=== PATIENT | female | born 1950 | race Caucasian/White ===

== ENCOUNTER 2021-08-11 13:26 | Inpatient (IN) | payer MEDICARE, OTHER ==
[~2021-08-11] VITALS: Ht 157.5 cm; Wt 89.6 kg
[~2021-08-11 13:26] MED LIST: CRUTCH3 USE; HYDACE5 PO; IBUP600 PO; NAPR500 PO; [UNRECOGNIZED DRUG - OTHER] PO
[2021-08-11 14:38] LABS: BASOPHILS ABSOLUTE AUTO 0.05 K/mm3 (0.00-0.23); BASOPHILS PERCENT AUTO 0 % (0-2); EOSINOPHILS PERCENT AUTO 0 % (0-6); Hematocrit 43.9 % (33.0-51.0); Hemoglobin 14.4 g/dL (11.5-16.0); IMMATURE GRAN PERCENT AUTO 2 % (0-1); LYMPHOCYTES ABSOLUTE AUTO 0.82 K/mm3 (0.84-5.20); LYMPHOCYTES PERCENT AUTO 4 % (21-46); MONOCYTES ABSOLUTE AUTO 1.39 K/mm3 (0.16-1.47); MONOCYTES PERCENT AUTO 6 % (4-13); Mean Corpuscular HGB 28.3 pg (26.0-34.0); Mean Corpuscular HGB Conc 32.8 g/dL (31.5-36.5); Mean Corpuscular Volume 86 fL (80-100); Mean Platelet Volume 10.5 fL (9.1-12.4); NEUTROPHILS ABSOLUTE AUTO 19.16 K/mm3 (1.96-9.15); NEUTROPHILS PERCENT AUTO 88 % (41-73); Platelet Count 255 K/mm3 (150-400); RDW Coefficient Variation 11.9 % (11.7-14.2); RDW Standard Deviation 38.3 fL (35.1-46.3); Red Blood Cell Count 5.08 M/mm3 (3.80-5.20); White Blood Cell Count 21.92 K/mm3 (4.00-11.30)
[2021-08-11 14:41] LABS: Base Excess Venous -4.5 mmol/L; Bicarbonate Venous 20.7 mmol/L (24.0-30.0); PO2 Venous 50.8 mmHg (38-42); pH Blood Venous 7.33 (7.34-7.37)
[2021-08-11 15:00] LABS: Glucose, Blood 601 mg/dL (70-99)
[2021-08-11 15:06] LABS: Troponin I <0.015 ng/mL (0.000-0.040)
[2021-08-11 15:07] LABS: Alanine Aminotransfer (ALT/SGP 16 U/L (12-78); Albumin, Blood 2.3 g/dL (3.4-5.0); Albumin/Globulin Ratio 0.4 (0.8-1.8); Alk Phos 104 U/L (50-136); Anion Gap 15 mmol/L (6-16); Aspartate Aminotrans (AST/SGOT 18 U/L (12-37); Bilirubin, Total 1.2 mg/dL (0.1-1.0); Blood Urea Nitrogen 39 mg/dL (8-24); Bun/Creatinine Ratio 34.8 (12.0-20.0); CO2, Blood 20 mmol/L (21-32); Calcium, Blood 8.9 mg/dL (8.5-10.1); Chloride, Blood 90 mmol/L (98-108); Creatinine, Blood 1.12 mg/dL (0.40-1.00); Globulin, Blood 5.5 g/dL (2.2-4.0); Glomerular Filtration Rate 48 (60-); Glucose, Blood 583 mg/dL (70-99); Potassium, Blood 4.4 mmol/L (3.5-5.5); Sodium, Blood 125 mmol/L (136-145); Total Protein, Blood 7.8 g/dL (6.4-8.2)
[2021-08-11 15:31] LABS: Magnesium, Blood 1.7 mg/dL (1.6-2.4)
[2021-08-11 15:40] LABS: Source, Urine Clean Catch
[2021-08-11 15:49] LABS: Appearance, Urine Cloudy (Clear); Bilirubin, Urine Neg (Neg); Blood, Urine 4+ (Neg); Color, Urine Yellow (P-Yellow); Glucose Qualitative, Urine 4+ (Neg); Ketones, Urine 3+ (Neg); Leukocyte Esterase, Urine 3+ (Neg); Nitrite, Urine Neg (Neg); Protein, Urine 2+ (Neg); Urobilinogen, Urine NORM (Normal)
[2021-08-11 16:30] LABS: White Blood Cells, Urine 50-100 /hpf (0-5)
[2021-08-11 16:31] LABS: Bacteria Many /hpf; Squamous Epithelial Cells Few /hpf (Few)
[2021-08-11 18:50] LABS: SARS-Cov-2 (COVID-19) PCR, MMC NEGATIVE (NEGATIVE)
[2021-08-11 20:41] LABS: Influenza A, PCR NEGATIVE (NEGATIVE); Influenza B, PCR NEGATIVE (NEGATIVE); Resp Syncytial Virus, PCR NEGATIVE (NEGATIVE)
--- NOTE | 2021-08-11 22:11 | NUR ---
PATIENT TO ROOM @2044 FROM ED. PATIENT IS ALERT AND ORIENTED X SELF ONLY. FOLLOWS COMMANDS BUT VERY FORGETFULL AND DOES NOT MAKE SENSE AT TIMES. 02 SATS 92-95% ON RA. LUNGS SOUNDS CLEAR IN UPPER LOBES AND DIM IN THE BASES. HR SR 110-130 WITH PVCs. PATIENT DENIES CP/PRESSURE. BP ELEVATED. BRIEF IN PLACE, PATIENT INCONTINENT. SKIN BREAKDOWN IN VAGINAL AREA NOTICED, LIKELY DUE TO MOISTURE/INCONTINENCE. UPON ARRIVAL FROM ED, NS AND INSULIN INF IN INFILTRATED IV, IV PULLED AND NEW 18G IN RIGHT FOREARM. INSULIN gtt INF 2 UNITS/HR. Q1 HOUR BLOOD GLUCOSE CHECKS. CALL LIGHT IN REACH. BED ALARM ON. SEE SHIFT ASSESSMENT FOR MORE DETAIL.
[2021-08-11 23:17] LABS: Anion Gap 14 mmol/L (6-16); Blood Urea Nitrogen 30 mg/dL (8-24); Bun/Creatinine Ratio 39.2 (12.0-20.0); CO2, Blood 21 mmol/L (21-32); Calcium, Blood 8.1 mg/dL (8.5-10.1); Chloride, Blood 98 mmol/L (98-108); Creatinine, Blood 0.77 mg/dL (0.40-1.00); Glomerular Filtration Rate >60 (60-); Glucose, Blood 345 mg/dL (70-99); Potassium, Blood 4.1 mmol/L (3.5-5.5); Sodium, Blood 133 mmol/L (136-145)
[2021-08-12 03:56] LABS: BASOPHILS ABSOLUTE AUTO 0.05 K/mm3 (0.00-0.23); BASOPHILS PERCENT AUTO 0 % (0-2); EOSINOPHILS PERCENT AUTO 0 % (0-6); Hematocrit 37.9 % (33.0-51.0); Hemoglobin 13.1 g/dL (11.5-16.0); IMMATURE GRAN ABSOLUTE AUTO 0.25 K/mm3 (0.00-0.10); IMMATURE GRAN PERCENT AUTO 1 % (0-1); LYMPHOCYTES PERCENT AUTO 6 % (21-46); MONOCYTES ABSOLUTE AUTO 1.31 K/mm3 (0.16-1.47); MONOCYTES PERCENT AUTO 7 % (4-13); Mean Corpuscular HGB 28.7 pg (26.0-34.0); Mean Corpuscular HGB Conc 34.6 g/dL (31.5-36.5); Mean Corpuscular Volume 83 fL (80-100); Mean Platelet Volume 10.5 fL (9.1-12.4); NEUTROPHILS ABSOLUTE AUTO 16.88 K/mm3 (1.96-9.15); NEUTROPHILS PERCENT AUTO 86 % (41-73); Platelet Count 221 K/mm3 (150-400); RDW Coefficient Variation 11.9 % (11.7-14.2); RDW Standard Deviation 36.4 fL (35.1-46.3); Red Blood Cell Count 4.56 M/mm3 (3.80-5.20); White Blood Cell Count 19.69 K/mm3 (4.00-11.30)
[2021-08-12 04:12] LABS: Alanine Aminotransfer (ALT/SGP 15 U/L (12-78); Albumin, Blood 1.8 g/dL (3.4-5.0); Albumin/Globulin Ratio 0.4 (0.8-1.8); Alk Phos 82 U/L (50-136); Anion Gap 7 mmol/L (6-16); Aspartate Aminotrans (AST/SGOT 25 U/L (12-37); Bilirubin, Total 0.5 mg/dL (0.1-1.0); Blood Urea Nitrogen 26 mg/dL (8-24); Bun/Creatinine Ratio 36.7 (12.0-20.0); CO2, Blood 25 mmol/L (21-32); Calcium, Blood 8.3 mg/dL (8.5-10.1); Chloride, Blood 103 mmol/L (98-108); Creatinine, Blood 0.71 mg/dL (0.40-1.00); Globulin, Blood 4.8 g/dL (2.2-4.0); Glomerular Filtration Rate >60 (60-); Glucose, Blood 198 mg/dL (70-99); Potassium, Blood 3.7 mmol/L (3.5-5.5); Sodium, Blood 135 mmol/L (136-145); Total Protein, Blood 6.6 g/dL (6.4-8.2)
--- NOTE | 2021-08-12 05:34 | NUR ---
SHIFT SUMMARY PATIENT BECAME ALERT AND ORIENTED X4 THROUGH THE NIGHT. PUPILS REACTIVE AND EQUALS. 02 SATS 94% ON RA, LUNGS SOUND CLEAR TO DIMINISHED. HR SR @84, DOWN FROM 110-120s, LESS PVCs THEN WHEN PATIENT ARRIVED. BP STABLE. INSULIN gtt TITRATED OFF ONCE CBG <200, MEDICATED WITH SQ INSULIN PER EMAR. LAST BAG OF FLUIDS INF. PATIENT IS WEAK AND NEEDS ASSISTANCE WITH TURNING. INCONTINENT, ATTENDS IN PLACE. ONE INCONTINENT VOID THIS SHIFT. PATIENT STATES SHE IS FEELING MUCH BETTER. CALL LIGHT IN REACH.
--- NOTE | 2021-08-12 18:35 | NUR ---
PT ALERT AND ORIENTED X3, WAS ABLE TO EAT HER 3 MEALS WITH MINIMUM ASSISTANCE. NO DISTRESS, FAMILY CAME TO VISIT AND WAS PROVIDED WITH UPGRADES.
--- NOTE | 2021-08-12 21:10 | NUR ---
PT TRANSFERRED TO SURGICAL FLOOR BED 219 VIA BED.
--- NOTE | 2021-08-12 21:22 | NUR ---
ASSUMED CARE TRANSFERED FROM ICU TO SURG UNIT RM 219. PT ALERT AND ORIENTED X4. DENIES PAIN. REQUEST TO TRANSFER FROM BED TO BSC WIT SBA AND FWW. REORIENT IN ROOM AND NOTIFY TO CALL WHEN READY TO BACK IN BED. WILL CONTINUE TO REASSESS PT.
[2021-08-13 04:18] LABS: BASOPHILS ABSOLUTE AUTO 0.04 K/mm3 (0.00-0.23); BASOPHILS PERCENT AUTO 0 % (0-2); EOSINOPHILS ABSOLUTE AUTO 0.01 K/mm3 (0.00-0.68); EOSINOPHILS PERCENT AUTO 0 % (0-6); Hematocrit 38.2 % (33.0-51.0); Hemoglobin 12.8 g/dL (11.5-16.0); IMMATURE GRAN ABSOLUTE AUTO 0.12 K/mm3 (0.00-0.10); IMMATURE GRAN PERCENT AUTO 1 % (0-1); LYMPHOCYTES ABSOLUTE AUTO 1.61 K/mm3 (0.84-5.20); LYMPHOCYTES PERCENT AUTO 10 % (21-46); MONOCYTES ABSOLUTE AUTO 1.24 K/mm3 (0.16-1.47); MONOCYTES PERCENT AUTO 7 % (4-13); Mean Corpuscular HGB 28.1 pg (26.0-34.0); Mean Corpuscular HGB Conc 33.5 g/dL (31.5-36.5); Mean Corpuscular Volume 84 fL (80-100); NEUTROPHILS ABSOLUTE AUTO 13.81 K/mm3 (1.96-9.15); NEUTROPHILS PERCENT AUTO 82 % (41-73); Platelet Count 217 K/mm3 (150-400); RDW Coefficient Variation 12.1 % (11.7-14.2); RDW Standard Deviation 37.1 fL (35.1-46.3); Red Blood Cell Count 4.55 M/mm3 (3.80-5.20); White Blood Cell Count 16.83 K/mm3 (4.00-11.30)
[2021-08-13 04:37] LABS: Albumin, Blood 1.7 g/dL (3.4-5.0); Anion Gap 8 mmol/L (6-16); Blood Urea Nitrogen 21 mg/dL (8-24); Bun/Creatinine Ratio 30.9 (12.0-20.0); CO2, Blood 24 mmol/L (21-32); Calcium, Blood 8.1 mg/dL (8.5-10.1); Chloride, Blood 102 mmol/L (98-108); Creatinine, Blood 0.68 mg/dL (0.40-1.00); Glomerular Filtration Rate >60 (60-); Glucose, Blood 279 mg/dL (70-99); Phosphorus, Blood 1.7 mg/dL (2.5-4.9); Sodium, Blood 134 mmol/L (136-145)
--- NOTE | 2021-08-13 05:13 | NUR ---
SHIFT SUMMARY PT AOX4. SLEPT GOOD OVERNIGHT. [place] [facility] [place] GLUCOSE THIS MORNING WAS 279. VOIDING WITHOUT DIFFIUCLTY. TOLERATING PO INTAKE/ ADA DIET. DENIES NAUSEA AND VOMITING. LUNGS ARE CLEAR. VSS. PT DENIES CHEST PAIN AND SOB. TELE IN PLACED - SINUS WITH SOME PVC'S AT 80'S. PT IS CONCERN ABOUT INSURANCE COVERAGE WITH HER HOSPITAL VISIT. WILL NOTIFY ONCOMING NURSE TO ADDRESS THIS PROBLEM WITH CARE MANAGEMENT. CALL LIGHT WITHIN REACH. WILL PROVIDE REPORT TO ONCOMING NURSE.
--- NOTE | 2021-08-13 17:55 | NUR ---
SUMMARY NO ACUTE CHANGES T/O SHIFT. COVERED PT'S CBGS PER ORDERS. PLACED DIETARY CONSULT FOR NEW DX DM. PT INCONTINENT OF URINE MOST OF SHIFT. 1 PERSON ASSIST TO BSC; WEAK. BED ALARM ON FOR SAFETY. CALL LIGHT IN REACH; USES APPROPRIATELY.
--- NOTE | 2021-08-13 19:05 | NUR ---
REPORT GIVEN TO ONCOMING SHIFT.
--- NOTE | 2021-08-14 06:17 | NUR ---
PT IS A/OX2. CONFUSED AND FORGETFUL. ABLE TO MAKE HER NEEDS KNOWN. TOLERATING ADA DIET. HS BLOOD SUGAR: 244. TELE: SR W/PVC'S. DENIES ANY CP, PRESSURE OR PALPITATIONS. 1+ PEDAL EDEMA. D/T GENERALIZED WEAKNESS, IS 2PA W/FWW & GAIT BELT W/TRANSFERS. WEARING DISPOSABLE ADULT BRIEFS FOR URINARY INCONTIENCE. PERIAREA RED & EXCORIATED, CREAM APPLIED AFTER EA INCONTINENCE. MEDICATED W/PRN TYLENOL X1 FOR C/O LOW BACK PAIN, GOOD RESULTS.
[2021-08-14 10:21] LABS: Albumin, Blood 1.7 g/dL (3.4-5.0); Anion Gap 6 mmol/L (6-16); Blood Urea Nitrogen 14 mg/dL (8-24); Bun/Creatinine Ratio 23.4 (12.0-20.0); CO2, Blood 28 mmol/L (21-32); Calcium, Blood 8.2 mg/dL (8.5-10.1); Chloride, Blood 100 mmol/L (98-108); Glomerular Filtration Rate >60 (60-); Glucose, Blood 283 mg/dL (70-99); Phosphorus, Blood 2.2 mg/dL (2.5-4.9); Potassium, Blood 4.2 mmol/L (3.5-5.5); Sodium, Blood 134 mmol/L (136-145)
--- NOTE | 2021-08-14 11:37 | NUR ---
PT HAS SMALL OPENING ON RIGHT BUTTOCKS. OFTEN WET DUE TO INCONTINENCE. PLACED PROTECTIVE BARRIER CREAM.
--- NOTE | 2021-08-14 13:40 | NUR ---
VTACH PT HAD A COUPLE RUNS OF VTACH. CHECKED ON PT, DENIED ANY SOB, CP, N/V. VSS. REPORTED TO DR PERAZA. NEW NEW ORDERS AT THIS TIME.
--- NOTE | 2021-08-14 16:50 | NUR ---
ECHO IN W/PT.
--- NOTE | 2021-08-14 17:05 | NUR ---
SUMMARY PT HAD COUPLE RUNS VTACH THIS SHIFT. PT WAS ASYMPTOMATIC. NOTIFIED DR PERAZA. PT SAT UP IN CHAIR MOST OF SHIFT. EDUCATED PT ON INSULIN ADMINISTRATION. ASSISTED PT W/GIVING INSULIN TO SELF AT LUNCH. ECHO IN PROCESS AT THIS TIME. SPOUSE VISITING.
[2021-08-15 04:52] LABS: Hematocrit 37.9 % (33.0-51.0); Hemoglobin 12.4 g/dL (11.5-16.0); Mean Corpuscular HGB 27.9 pg (26.0-34.0); Mean Corpuscular HGB Conc 32.7 g/dL (31.5-36.5); Mean Corpuscular Volume 85 fL (80-100); Mean Platelet Volume 10.9 fL (9.1-12.4); Platelet Count 262 K/mm3 (150-400); RDW Coefficient Variation 12.2 % (11.7-14.2); RDW Standard Deviation 38.1 fL (35.1-46.3); Red Blood Cell Count 4.44 M/mm3 (3.80-5.20); White Blood Cell Count 14.25 K/mm3 (4.00-11.30)
--- NOTE | 2021-08-15 04:53 | NUR ---
PT IS UP ON HER BEDSIDE RECLINER WHERE SHE'S SLEPT, NO PROBLEM NOTED OR REPORTED. PT IS RECOVERING FROM HYPERGLYCEMIA EPISODE, BLOOD GLUCOSE BEING CONTROLLED WITH DIET, INSULIN, AND IV FLUID. PT IS ENCOURAGED WITH AMBULATING IN HER ROOM IN EFFORT TO KEEP GLUCOSE LEVEL CONTROLLED. SHE IS ASSISTED WITH OTHER CARE AND ADLS, ASSISTED WITH BATHROOM AND TOILETING NEEDS, MEDICATED ORDERED. HER CALL LIGHT IS GIVEN TO HER AND WAS REMINDED TO CALL FOR HELP WHEN ASSISISTANCE IS NEEDED SHE IS MONITORED.
[2021-08-15 05:23] LABS: Albumin, Blood 1.6 g/dL (3.4-5.0); Anion Gap 5 mmol/L (6-16); Blood Urea Nitrogen 12 mg/dL (8-24); Bun/Creatinine Ratio 22.2 (12.0-20.0); CO2, Blood 27 mmol/L (21-32); Chloride, Blood 102 mmol/L (98-108); Creatinine, Blood 0.54 mg/dL (0.40-1.00); Glomerular Filtration Rate >60 (60-); Glucose, Blood 184 mg/dL (70-99); Phosphorus, Blood 2.5 mg/dL (2.5-4.9); Potassium, Blood 4.2 mmol/L (3.5-5.5); Sodium, Blood 134 mmol/L (136-145)
[2021-08-15] MEDS ORDERED: INSULANPEN SC (12:09)
[2021-08-15] MEDS ORDERED: HUMALOG KW100 UNIT/1 SC ×2 (12:10→12:12)
[2021-08-15] MEDS ORDERED: LEVO750 PO (12:13)
[2021-08-15] MEDS ORDERED: Prinivil10 MG PO (12:13)
[2021-08-15] MEDS ORDERED: METO25ER PO (12:15)
--- NOTE | 2021-08-15 15:06 | NUR ---
DISCHARGE SUMMARY PT ADMITTED FOR HSS RELATED TO UNDIAGNOSED DM2. PT'S BLOOD GLUCOSE CURRENTLY STABLE. EDUCATED PT ON OWN INSULIN ADMINISTRATION. PT HAD SOME DIFFICULTY DUE TO HER GLASSES BEING AT HOME AND NOT BEING ABLE TO SEE THE NUMBERS ON THE INSULIN PEN. PT IS ALSO IN NEED OF PCP. HEALTH AND WELLNESS DIRECTOR SAW THE PATIENT AND SUGGESTED GETTING THE PT STARTED WITH A PCP AT [facility] OR [facility]. HEALTH AND WELLNESS DIRECTOR PROVIDED PT WITH THE PAPER WORK AND EDUCATION ON HOW TO DO THIS. PT'S FAMILY CAME IN AND DIETITION EDUCATED THE PT/PT FAMILY DIABETIC DIET. VSS. PT STILL CONCERNED ABOUT GIVING HERSELF INSULIN, ADDITIONAL EDUCATION AND SUPPORT PROVIDED. HAS DM2 WELL AND SAID THAT HE FEELS COMFORTABLE HELPING HER AT HOME. PT DISCHARGED HOME WITH FAMILY.
== END 2021-08-15 15:20 | disposition home or self-care (01) | DRG 872 ==
LOC: ER 13:26 → PCU 17:27 → ICUW 17:27 → SURS 08-12 21:15
PROVIDERS: Emergency Medicine; Family Medicine; Internal Medicine; Physician Assistant; ADMIT Internal Medicine
DX: A41.51 Sepsis due to Escherichia coli [E. coli] (principal); E11.00 Type 2 diabetes mellitus with hyperosmolarity without nonketotic hyperglycemic-hyperosmolar coma (NKHHC); N39.0 Urinary tract infection, site not specified; E87.1 Hypo-osmolality and hyponatremia; N17.9 Acute kidney failure, unspecified; I47.2 Ventricular tachycardia; I42.0 Dilated cardiomyopathy; Z23 Encounter for immunization; Z20.822 Contact with and (suspected) exposure to COVID-19; N18.30 Chronic kidney disease, stage 3 unspecified; E86.0 Dehydration; E66.9 Obesity, unspecified; E83.39 Other disorders of phosphorus metabolism; I12.9 Hypertensive chronic kidney disease with stage 1 through stage 4 chronic kidney disease, or unspecified chronic kidney disease; T78.40XA Allergy, unspecified, initial encounter; Z68.36 Body mass index [BMI] 36.0-36.9, adult; Z98.891 History of uterine scar from previous surgery; Z87.891 Personal history of nicotine dependence; Z79.899 Other long term (current) drug therapy
CPT/HCPCS: 0241U; 36415; 71046; 80048; 80053; 80069; 81001; 82010; 82803; 82947; 83036; 83605; 83690; 83735; 83880; 84145; 84484; 85025; 85027; 87040; 87077; 87086; 87186; 90686; 93005; 93010; 93306; 94762; 96365; 99285-25; A9270; G0008; J0696; J1650; J1815; J7030; J7050; J7060

== ENCOUNTER 2022-01-11 22:00 | Observation (INO) | payer MEDICARE, OTHER ==
[~2022-01-11] VITALS: Ht 157.5 cm; Wt 81.2 kg
[~2022-01-11 22:00] MED LIST changes: +HUMALOG KW100 UNIT/1 SC; +INSULANPEN SC; +LEVO750 PO; +METO25ER PO; +Prinivil10 MG PO
[2022-01-11 23:21] LABS: Source, Urine Clean Catch
[2022-01-11 23:23] LABS: Bilirubin, Urine Neg (Neg); Blood, Urine 3+ (Neg); Glucose Qualitative, Urine 4+ (Neg); Ketones, Urine 4+ (Neg); Leukocyte Esterase, Urine Neg (Neg); Nitrite, Urine Neg (Neg); Protein, Urine 2+ (Neg); Urobilinogen, Urine NORM (Normal)
[2022-01-11 23:38] LABS: Amorphous Light (0-Heavy); Appearance, Urine Clear (Clear); Bacteria Rare /hpf; Color, Urine Yellow (P-Yellow); Squamous Epithelial Cells Rare /hpf (Few); White Blood Cells, Urine Not Seen /hpf (0-5)
[2022-01-12 00:19] LABS: BASOPHILS ABSOLUTE AUTO 0.04 K/mm3 (0.00-0.23); BASOPHILS PERCENT AUTO 0 % (0-2); EOSINOPHILS PERCENT AUTO 0 % (0-6); Hematocrit 44.7 % (33.0-51.0); IMMATURE GRAN ABSOLUTE AUTO 0.07 K/mm3 (0.00-0.10); IMMATURE GRAN PERCENT AUTO 1 % (0-1); LYMPHOCYTES ABSOLUTE AUTO 0.85 K/mm3 (0.84-5.20); LYMPHOCYTES PERCENT AUTO 6 % (21-46); MONOCYTES ABSOLUTE AUTO 0.73 K/mm3 (0.16-1.47); MONOCYTES PERCENT AUTO 5 % (4-13); Mean Corpuscular HGB 28.6 pg (26.0-34.0); Mean Corpuscular HGB Conc 33.6 g/dL (31.5-36.5); Mean Corpuscular Volume 85 fL (80-100); Mean Platelet Volume 10.4 fL (9.1-12.4); NEUTROPHILS ABSOLUTE AUTO 12.68 K/mm3 (1.96-9.15); NEUTROPHILS PERCENT AUTO 88 % (41-73); Platelet Count 193 K/mm3 (150-400); RDW Coefficient Variation 12.4 % (11.7-14.2); RDW Standard Deviation 38.6 fL (35.1-46.3); Red Blood Cell Count 5.24 M/mm3 (3.80-5.20); White Blood Cell Count 14.37 K/mm3 (4.00-11.30)
[2022-01-12 00:28] LABS: Alanine Aminotransfer (ALT/SGP 22 U/L (12-78); Albumin, Blood 3.2 g/dL (3.4-5.0); Albumin/Globulin Ratio 0.8 (0.8-1.8); Alk Phos 62 U/L (50-136); Anion Gap 15 mmol/L (6-16); Aspartate Aminotrans (AST/SGOT 25 U/L (12-37); Bilirubin, Total 0.5 mg/dL (0.1-1.0); Blood Urea Nitrogen 14 mg/dL (8-24); Bun/Creatinine Ratio 21.8 (12.0-20.0); CO2, Blood 18 mmol/L (21-32); Calcium, Blood 8.5 mg/dL (8.5-10.1); Chloride, Blood 104 mmol/L (98-108); Creatinine, Blood 0.64 mg/dL (0.40-1.00); Globulin, Blood 4.2 g/dL (2.2-4.0); Glomerular Filtration Rate >60 (60-); Glucose, Blood 147 mg/dL (70-99); Sodium, Blood 137 mmol/L (136-145); Total Protein, Blood 7.4 g/dL (6.4-8.2)
[2022-01-12 05:50] LABS: Hematocrit 42.9 % (33.0-51.0); Hemoglobin 14.3 g/dL (11.5-16.0); Mean Corpuscular HGB 28.7 pg (26.0-34.0); Mean Corpuscular HGB Conc 33.3 g/dL (31.5-36.5); Mean Corpuscular Volume 86 fL (80-100); Platelet Count 175 K/mm3 (150-400); RDW Coefficient Variation 12.6 % (11.7-14.2); RDW Standard Deviation 39.3 fL (35.1-46.3); Red Blood Cell Count 4.98 M/mm3 (3.80-5.20); White Blood Cell Count 12.03 K/mm3 (4.00-11.30)
[2022-01-12 06:15] LABS: Anion Gap 13 mmol/L (6-16); Blood Urea Nitrogen 14 mg/dL (8-24); Bun/Creatinine Ratio 23.1 (12.0-20.0); CO2, Blood 19 mmol/L (21-32); Calcium, Blood 8.2 mg/dL (8.5-10.1); Chloride, Blood 103 mmol/L (98-108); Creatinine, Blood 0.61 mg/dL (0.40-1.00); Glomerular Filtration Rate >60 (60-); Glucose, Blood 121 mg/dL (70-99); Potassium, Blood 3.8 mmol/L (3.5-5.5); Sodium, Blood 135 mmol/L (136-145)
[2022-01-12 06:24] LABS: CHOL/HDL RATIO 4.4; Cholesterol 194 mg/dL (50-200); HDL Cholesterol 44 mg/dL (>39); LDL/HDL RATIO 2.8; Low Density Lipoprotein Chol 125 mg/dL (0-110); Triglycerides 126 mg/dL (30-160); Very Low Density Lipoprot Chol 25 mg/dL (6-32)
--- NOTE | 2022-01-12 07:43 | NUR ---
0520: PT ARRIVE TO UNIT VIA STRETCHER. AOX4. VSS. PT ON ROOM AIR. PT REPORTS INCREASE WEAKNESS AND BODYACHYES, AFEBRILE DENIES CHEST PAIN, SOB, NAUSEA AND VOMITING. PT IS NPO. ADMITTED FOR ELEVATED TROPONIN AND COVID+. PT WAS RECEIVING REMDESIVIR WHEN SHE CAME IN. ATTENDS IN PLACE. IV ON R WRIST. PLAN: CARDIOLOGY CONSULT FOR ELEVATED TROPONIN. CALL LIGHT WITHIN REACH. WILL CONTINUE TO MONITOR.
--- NOTE | 2022-01-12 09:47 | NUR ---
CRITICAL LAB TROP 312 CALLED FROM LAB AT 0947. CALLED AND INFORMED DR SHEN AT 0948. NO NEW ORDERS. CALLED SAME THIS AM TO CLARIFY DIET/INSULIN ORDERS. AWAITING NEW ORDERS FOR THAT.
[2022-01-12] MEDS ORDERED: FURO20 PO (12:37)
[2022-01-12] MEDS ORDERED: INSULANI SC (12:38)
[2022-01-12] MEDS ORDERED: JARDIANCE10 MG PO (12:38)
[2022-01-12] MEDS ORDERED: METF500 PO (12:40)
[2022-01-12] MEDS ORDERED: METO25ER PO (12:42)
[2022-01-12] MEDS ORDERED: NOVOLOG FL100 UNIT/3 SC (12:43)
[2022-01-12 14:52] LABS: Magnesium, Blood 2.1 mg/dL (1.6-2.4)
--- NOTE | 2022-01-12 14:57 | NUR ---
RN NOTE MS SOFIA IS ORIENTATED TO SELF, PLACE, SITUATION, DATE STATED A QUESTION. SHE DOES NOT HAVE GOOD KNOWLEDGE OF HER HOME MEDICATIONS OR HER HEALTH HISTORY. NO SOB AT REST. NON PRODUCTIVE OCCASIONAL COUGH. VERY WEAK, NEEDING ASSISTANCE TO TURN IN BED. TURNED SIDE TO SIDE AND PROPPED WITH PILLOWS. EXCORIATED AREAS NOTED TO UNDER LEFT BREAST AND LEFT GROIN AREA. CLEANED AND BARRIER CREAM APPLIED TO BOTH AREAS. INCONTINENT OF URINE, WHICH SHE SAID HAS BEEN CARLOS ON FOR MONTHS. SHE KNOWS WHEN SHSE VOIDED AND SEEMS TO VOID A FULL VOID EACH TIME. STARTED ON A DIABETIC DIET AT LUNCH TIME, FLUIDS AND SNACKS GIVEN WHEN NPO ORDER WAS LIFTED. LONG ACTING INSULIN HELD THIS MORNING NPO AFTER TALKING WITH MD. SEEN BY DR PERAZA AND BY DR MENDOSA (CARDS CONSULT). ECHO BEING DONE AT THE BEDSIDE PRESENTLY. 6 BEAT RUN OF VT CALLED UP FROM SALES MARKETING DIRECTOR. PT HAD NO C/O SOB OR CP AT THIS TIME, VSS. DR PERAZA INFORMED AND MG/PHOS STAT DRAWN BY BEHAVIORAL SERVICES TECH ORDERED. PT DENIES CHEST PAIN. BED LOW, CALL LIGHT IN REACH.
[2022-01-12] MEDS ORDERED: ATOR40TA PO (18:47)
[2022-01-12] MEDS ORDERED: CLOP75 PO (18:47)
--- NOTE | 2022-01-12 20:02 | NUR ---
DISCHARGE NOTE. MS SOFIA WAS DISCHARGED FROM MEDICAL UNIT. TELEMETRY REMOVED. PIV REMOVED INTACT. DISCHARGE INSTRUCTIONS WERE REVIEWED WITH PT AND HER GRANDSON REZA WHO CAME TO GIVE HER A RIDE HOME. MS SOFIA DOES NOT REMEMBER DISCHARGE ISTRUCTIONS, DOES NOT REMEMBER HER MEDS OR HEALTH CARE, SO I WENT THROUGH ALL OF THE INSTRUCTIONS WITH REZA. HE VERBALISED UNDERSTANDING OF DC INSTRUCTIONS AND HAD OPPORTUNITY TO ASK QUESTIONS. SHE WAS EXCORTED VIA WHEELCHAIR TO THE CAR FOR DISCHARGE. PT HAD NO SOB, NO C/O PAIN ON DISCHARGE.
== END 2022-01-12 19:30 | disposition home or self-care (01) ==
LOC: ER 22:00 → MEDS 22:01
PROVIDERS: Internal Medicine; Student in an Organized Health Care Education/Training Program; ADMIT Internal Medicine
DX: U07.1 COVID-19 (principal); I42.0 Dilated cardiomyopathy; I21.A1 Myocardial infarction type 2; I11.0 Hypertensive heart disease with heart failure; I50.40 Unspecified combined systolic (congestive) and diastolic (congestive) heart failure; E11.9 Type 2 diabetes mellitus without complications; I47.2 Ventricular tachycardia; D72.829 Elevated white blood cell count, unspecified; R53.1 Weakness; E66.9 Obesity, unspecified; R29.6 Repeated falls; Z91.81 History of falling; Z68.32 Body mass index [BMI] 32.0-32.9, adult; Z79.4 Long term (current) use of insulin; Z87.891 Personal history of nicotine dependence
CPT/HCPCS: 36415; 71045; 73610; 80048; 80053; 80061; 81001; 82947; 83605; 83735; 84100; 84484; 85025; 85027; 93005; 93010; 93306; 96365; 99285-25; A9270; G0378; J0248; J1815; M0247

== ENCOUNTER 2022-01-28 20:41 | Inpatient (IN) | payer MEDICARE, OTHER ==
[~2022-01-28] VITALS: Ht 162.6 cm; Wt 78.3 kg
[~2022-01-28 20:41] MED LIST changes: +ATOR40TA PO; +CLOP75 PO; +FURO20 PO; +INSULANI SC; +JARDIANCE10 MG PO; +METF500 PO; +NOVOLOG FL100 UNIT/3 SC
[2022-01-28 21:38] LABS: BASOPHILS ABSOLUTE AUTO 0.07 K/mm3 (0.00-0.23); BASOPHILS PERCENT AUTO 0 % (0-2); EOSINOPHILS PERCENT AUTO 0 % (0-6); Hematocrit 38.8 % (33.0-51.0); IMMATURE GRAN ABSOLUTE AUTO 0.12 K/mm3 (0.00-0.10); IMMATURE GRAN PERCENT AUTO 1 % (0-1); LYMPHOCYTES ABSOLUTE AUTO 0.69 K/mm3 (0.84-5.20); LYMPHOCYTES PERCENT AUTO 4 % (21-46); MONOCYTES ABSOLUTE AUTO 0.43 K/mm3 (0.16-1.47); MONOCYTES PERCENT AUTO 3 % (4-13); Mean Corpuscular HGB Conc 33.5 g/dL (31.5-36.5); Mean Corpuscular Volume 87 fL (80-100); Mean Platelet Volume 10.8 fL (9.1-12.4); NEUTROPHILS PERCENT AUTO 92 % (41-73); Platelet Count 190 K/mm3 (150-400); RDW Standard Deviation 38.2 fL (35.1-46.3); Red Blood Cell Count 4.48 M/mm3 (3.80-5.20); White Blood Cell Count 16.11 K/mm3 (4.00-11.30)
[2022-01-28 22:02] LABS: Albumin, Blood 2.9 g/dL (3.4-5.0); Albumin/Globulin Ratio 0.7 (0.8-1.8); Bilirubin, Total 1.5 mg/dL (0.1-1.0); Bun/Creatinine Ratio 21.2 (12.0-20.0); Calcium, Blood 8.5 mg/dL (8.5-10.1); Creatinine, Blood 1.04 mg/dL (0.40-1.00); Globulin, Blood 3.9 g/dL (2.2-4.0); Potassium, Blood 3.7 mmol/L (3.5-5.5); Total Protein, Blood 6.8 g/dL (6.4-8.2)
[2022-01-28 22:05] LABS: Source, Urine Straight Cath
[2022-01-28 22:11] LABS: Appearance, Urine Hazy (Clear); Bilirubin, Urine Neg (Neg); Blood, Urine 5+ (Neg); Color, Urine Yellow (P-Yellow); Glucose Qualitative, Urine 4+ (Neg); Ketones, Urine 2+ (Neg); Leukocyte Esterase, Urine 1+ (Neg); Nitrite, Urine Neg (Neg); Protein, Urine 3+ (Neg); Urobilinogen, Urine NORM (Normal)
[2022-01-28 22:34] LABS: Amorphous Light (0-Heavy); Bacteria Many /hpf
[2022-01-28 22:35] LABS: Squamous Epithelial Cells Rare /hpf (Few)
--- NOTE | 2022-01-29 02:00 | NUR ---
PATIENT TRANSFER NOTE ELLEN PUENTE AND ESTHER RN RECEIVED PHONE REPORT FROM LUKE FLORES IN THE ED. PATIENT TO ROOM AT 0125. PATIENT WAS ABLE TO PIVOT TRANSFER INTO THE BED. PATIENT WAS DIAPHORETIC WITH T-SHIRT, HAIR, AND BODY VISIBLY WET. VSS. PATIENT TX TO COMMODE AND BATH GIVEN WHILE ON COMMODE WITH WASH CLOTHS FROM WARMER. PATIENT VERBALIZED COMFORT. WILL CONTINUE TO MONITOR FOR CHANGES.
[2022-01-29 03:40] LABS: SARS-Cov-2 (COVID-19) PCR, MMC NEGATIVE (NEGATIVE)
[2022-01-29 03:58] LABS: BASOPHILS ABSOLUTE AUTO 0.07 K/mm3 (0.00-0.23); BASOPHILS PERCENT AUTO 0 % (0-2); EOSINOPHILS PERCENT AUTO 0 % (0-6); Hematocrit 33.4 % (33.0-51.0); IMMATURE GRAN ABSOLUTE AUTO 0.41 K/mm3 (0.00-0.10); IMMATURE GRAN PERCENT AUTO 2 % (0-1); LYMPHOCYTES ABSOLUTE AUTO 1.09 K/mm3 (0.84-5.20); LYMPHOCYTES PERCENT AUTO 5 % (21-46); MONOCYTES ABSOLUTE AUTO 1.44 K/mm3 (0.16-1.47); MONOCYTES PERCENT AUTO 6 % (4-13); Mean Corpuscular HGB 28.6 pg (26.0-34.0); Mean Corpuscular HGB Conc 32.9 g/dL (31.5-36.5); Mean Corpuscular Volume 87 fL (80-100); Mean Platelet Volume 10.9 fL (9.1-12.4); NEUTROPHILS ABSOLUTE AUTO 19.95 K/mm3 (1.96-9.15); NEUTROPHILS PERCENT AUTO 87 % (41-73); Platelet Count 177 K/mm3 (150-400); RDW Coefficient Variation 12.3 % (11.7-14.2); RDW Standard Deviation 38.9 fL (35.1-46.3); Red Blood Cell Count 3.84 M/mm3 (3.80-5.20); White Blood Cell Count 22.96 K/mm3 (4.00-11.30)
[2022-01-29 04:15] LABS: Bun/Creatinine Ratio 20.7 (12.0-20.0); Creatinine, Blood 1.16 mg/dL (0.40-1.00); Potassium, Blood 4.1 mmol/L (3.5-5.5)
--- NOTE | 2022-01-29 05:23 | NUR ---
SHIFT SUMMARY PATIENT IS A&O X4. OCCASIONALLY FORGETFUL/CONFUSED ABOUT MORE COMPLEX PARTS OF HER LIFE. OTHERWISE THE PATIENT ASNWERS ALL QUESTIONS APPROPRIATELY. PATIENT IS AFEBRILE. SR ON TELE WITH HR 70-80S. SBP 100-110S. >95% ON RA. PATIENT HAD A NOSEBLEED IN THE ED AND AFTER HER COVID SWAB IN THE PCU, WHICH RESOLVED QUICKLY AND PATIENT STATED WAS NORMAL FOR HER WHEN SHE IS SICK. REDNESS NOTED IN BREAST/ABDOMINAL FOLDS AND PERIAREA. COCCYX IS RED AND BLANCHABLE. PATIENT RECEIVED A SPONGEBATH UPON ARRIVAL DUE TO BEING PHYSICALLY DIAPHORETIC WITH WET CLOTHES. PATIENT HAS NOT BEEN DIAPHORETIC SINCE. PATIENT IS CALM AND COOPERATIVE WITH CARE. 1 PERSON ASSIST TO BEDSIDE COMMODE. WEAKNESS NOTED WITH PATIENT VERBALIZING WEAKNESS WELL. STATED THAT SHE USES CANE AT HOME. BED IN LOWEST POSITION. CALL LIGHT IN REACH AND BED ALARM ON. SLEEPING WELL. WILL CONTINUE TO MONITOR FOR CHANGES.
[2022-01-29] MEDS ORDERED: NOVOLOG FL100 UNIT/3 SC (08:53)
--- NOTE | 2022-01-29 16:46 | NUR ---
END OF SHIFT SUMMARY: PATIENT HAS BEEN PLACED ON FLUIDS THIS EVENING, AND TYLENOL AND ICEPACKS DUE TOINCREASING TEMP. TEMP WAS ~99.6, VINNIE IN THE EVENING 100.0, THAN 101.6. 99.6 ON MOST VINNIE AT 1647. PATIENT HAS ALSO BEEN HAVING SOME MILD CONFUSION WHICH HAS BEEN OBSERVED THROUGH THE DAY BUT WORSE THIS EVENING, WILL INFORM PROVIDER. DENIES CHEST PAIN NEURO STRENGTH STILL THIER. WILL INFORM PSYCH THERAPIST WELL. WILL CONTINUE TO MONITOR AT THIS TIME.
--- NOTE | 2022-01-29 21:07 | NUR ---
ASSUMED CARE OF PATIENT AT APPROXIMATELY 1900 FROM MARIAH Kelly RN. PATIENT ALERT AND ORIENTED X; WEAK; FORGETFUL AT TIMES; REPORTS VERY COLD BUT AFEBRILE AND PATIENT HAD ICE PACKS IN PLACE; TEMP COMING DOWN; WAS 100.6 THEN 99.6 ORAL. PATIENT HAS URGENCY AND FREQUENCY WITH URINATION; INCONTINENT HALF THE TIME; UP TO BEDSIDE COMMODE WITH MODERATE ASSIST, GAIT BELT, AND FWW. ST ON TELE; OXYGEN SATURATION ABOVE 90% ON ROOM AIR. NS INFUSING PER ORDER INTO 1X PIV. PATIENT DENIES CP/PRESSURE, PAIN ELSEWHERE, NUMBNESS, TINGLING, DIZZINESS, AND NAUSEA.
[2022-01-30 04:33] LABS: BASOPHILS ABSOLUTE AUTO 0.07 K/mm3 (0.00-0.23); BASOPHILS PERCENT AUTO 1 % (0-2); EOSINOPHILS ABSOLUTE AUTO 0.02 K/mm3 (0.00-0.68); EOSINOPHILS PERCENT AUTO 0 % (0-6); Hematocrit 33.3 % (33.0-51.0); Hemoglobin 11.1 g/dL (11.5-16.0); IMMATURE GRAN ABSOLUTE AUTO 0.09 K/mm3 (0.00-0.10); IMMATURE GRAN PERCENT AUTO 1 % (0-1); LYMPHOCYTES ABSOLUTE AUTO 1.47 K/mm3 (0.84-5.20); LYMPHOCYTES PERCENT AUTO 11 % (21-46); MONOCYTES ABSOLUTE AUTO 1.18 K/mm3 (0.16-1.47); MONOCYTES PERCENT AUTO 9 % (4-13); Mean Corpuscular HGB 29.2 pg (26.0-34.0); Mean Corpuscular HGB Conc 33.3 g/dL (31.5-36.5); Mean Corpuscular Volume 88 fL (80-100); Mean Platelet Volume 11.4 fL (9.1-12.4); NEUTROPHILS ABSOLUTE AUTO 10.28 K/mm3 (1.96-9.15); NEUTROPHILS PERCENT AUTO 78 % (41-73); Platelet Count 184 K/mm3 (150-400); RDW Coefficient Variation 12.3 % (11.7-14.2); RDW Standard Deviation 39.9 fL (35.1-46.3); White Blood Cell Count 13.11 K/mm3 (4.00-11.30)
--- NOTE | 2022-01-30 06:22 | NUR ---
PATIENT SLEPT FOR ABOUT SIX HOURS LAST NIGHT. HEART RATE UP TO 130'S AT START OF SHIFT WHEN PATIENT AMBULATED AND HEART RATE HAS BEEN TRENDING IN THE 60-70'S SINCE FEVER BROKE. NO OTHER ACUTE CHANGES TO REPORT.
--- NOTE | 2022-01-30 07:11 | NUR ---
ASSUMED CARE: PT RESTING QUIETLY, NSR WITH BBB ON TELE AT 69. NO ACUTE NEEDS OR CONCERNS AT THIS TIME.
--- NOTE | 2022-01-30 09:13 | NUR ---
DRS CAME IN TO BEDSIDE TO CHECK ON PT. SON AT BEDSIDE. SEEMS OVERWHELMED CONSIDERING PT'S LAST NIGHT. OFFERED PALLIATIVE AND SPIRITUAL CARE SERVICES BUT DECLINED THOSE RESOURCES AT THIS TIME. DRS AWARE THAT PT'S VSS WITH TACHYCARDIA WITH ACTIVITY. NO ACUTE NEEDS AT THIS TIME.
--- NOTE | 2022-01-30 16:00 | NUR ---
PT TRANSFERRED TO ROOM 358 VIA WHEELCHAIR BY [employer]ACH[employer] STAFF. REPORT GIVEN TO MARK ROMAN AND MADE NURSE AWARE THAT PT'S RECENTLY AND THAT SHE HAS BEEN DEPRESSED TODAY WITH POOR APPETITE. FAMILY AT BEDSIDE DURING TRANSFER. NO ACUTE NEEDS OR CONCERNS.
--- NOTE | 2022-01-30 19:41 | NUR ---
END OF SHIFT SUMMARY: PATIENT ARRIVED TO UNIT AROUND 1600. REPORT RECEIVED FROM TAYE SHAY RN. PATIENT ALERT AND ORIENTED UPON ARRIVAL. PATIENT DENIED PAIN THROUGHOUT THE SHIFT. PATIENT CALL APPROPRIATELY. PATIENT STEADY ON FEET WITH MIN ASSIST AND FWW. PATIENT IS MOTIVATED TO BE INDEPENDENT AND DO THINGS FOR HERSELF. PATIENT TEARFUL AT TIMES RELATED TO HUSBANDS UNEXPECTED PASSING. FAMILY AT BEDSIDE THROUGHOUT THE REST OF THE SHIFT. PROVIDED SUPPORT AND ENCOURAGEMENT. PATIENT CONTINUES TO HAVE MINIMAL APPETITE. PATIENT CONTINUES TO HAVE URINARY URGENCY AND TYPICALLY HAS URINE IN HER ATTENDS BEFORE MAKING IT TO THE BATHROOM.
--- NOTE | 2022-01-31 04:32 | NUR ---
SHIFT SUMMARY 71 YR F ADMITTED ON 01/29/22 FOR SEPSIS/UTI. FULL CODE. NO ACUTE CHANGES THIS SHIFT. PT CALLS APPROPRIATELY AND WAS ABLE TO MAKE IT TO THE BATHROOM SEVERAL TIMES THROUGHOUT THE SHIFT W/O HAVING AN ACCIDENT. SHE IS A&O X 4 AND SEEMS TO BE DEALING WELL W/ THE SUDDEN PASSING OF HER . SHE STATES SHE IS LOOKING FORWARD TO GOING HOME AND BEING W/ HER FAMILY. NO C/O PAIN, N/V, OR ANY OTHER ISSUES.
[2022-01-31 05:25] LABS: BASOPHILS ABSOLUTE AUTO 0.04 K/mm3 (0.00-0.23); BASOPHILS PERCENT AUTO 0 % (0-2); EOSINOPHILS ABSOLUTE AUTO 0.12 K/mm3 (0.00-0.68); EOSINOPHILS PERCENT AUTO 1 % (0-6); Hematocrit 33.5 % (33.0-51.0); Hemoglobin 11.1 g/dL (11.5-16.0); IMMATURE GRAN ABSOLUTE AUTO 0.07 K/mm3 (0.00-0.10); IMMATURE GRAN PERCENT AUTO 1 % (0-1); LYMPHOCYTES ABSOLUTE AUTO 1.44 K/mm3 (0.84-5.20); LYMPHOCYTES PERCENT AUTO 15 % (21-46); MONOCYTES ABSOLUTE AUTO 1.29 K/mm3 (0.16-1.47); MONOCYTES PERCENT AUTO 13 % (4-13); Mean Corpuscular HGB 28.2 pg (26.0-34.0); Mean Corpuscular HGB Conc 33.1 g/dL (31.5-36.5); Mean Corpuscular Volume 85 fL (80-100); Mean Platelet Volume 10.8 fL (9.1-12.4); NEUTROPHILS ABSOLUTE AUTO 6.95 K/mm3 (1.96-9.15); NEUTROPHILS PERCENT AUTO 70 % (41-73); Platelet Count 195 K/mm3 (150-400); RDW Coefficient Variation 12.3 % (11.7-14.2); RDW Standard Deviation 38.5 fL (35.1-46.3); Red Blood Cell Count 3.93 M/mm3 (3.80-5.20); White Blood Cell Count 9.91 K/mm3 (4.00-11.30)
[2022-01-31 05:55] LABS: Albumin, Blood 2.2 g/dL (3.4-5.0); Albumin/Globulin Ratio 0.6 (0.8-1.8); Bilirubin, Total 0.5 mg/dL (0.1-1.0); Bun/Creatinine Ratio 21.1 (12.0-20.0); Creatinine, Blood 0.95 mg/dL (0.40-1.00); Globulin, Blood 3.9 g/dL (2.2-4.0); Total Protein, Blood 6.1 g/dL (6.4-8.2)
--- NOTE | 2022-01-31 08:42 | NUR ---
Upon receiving a referral for spiritual care by pt's RN, I visit patient. Pt immediately explains about the of her spouse, Sahil, who in the hospital a few rooms down from her rm on the day before today. I conduct a life review of pt and spend quite some time hearing how the pt is processing his . I also explore her coping skills and resources as well as give her additional resources for bereavement assistance. I listen empathically and provide grief support, gentle addiction counselor and prayer. Pt responds well and shos signs of being comforted. I will continue to remain available to pt and family.
[2022-01-31] MEDS ORDERED: AMOCLA500 PO (10:53)
[2022-01-31] MEDS ORDERED: VISBIOME 112.51 EACH PO (10:53)
== END 2022-01-31 12:16 | disposition home health service (06) | DRG 871 ==
LOC: ER 20:41 → PCU 20:42 → MEDS 01-30 16:02
PROVIDERS: Emergency Medicine; Student in an Organized Health Care Education/Training Program; ADMIT Family Medicine
DX: A40.8 Other streptococcal sepsis (principal); I21.A1 Myocardial infarction type 2; N39.0 Urinary tract infection, site not specified; I42.0 Dilated cardiomyopathy; Z16.11 Resistance to penicillins; I50.42 Chronic combined systolic (congestive) and diastolic (congestive) heart failure; I13.0 Hypertensive heart and chronic kidney disease with heart failure and stage 1 through stage 4 chronic kidney disease, or unspecified chronic kidney disease; R65.20 Severe sepsis without septic shock; Z86.16 Personal history of COVID-19; E86.0 Dehydration; E66.9 Obesity, unspecified; Z98.890 Other specified postprocedural states; N18.30 Chronic kidney disease, stage 3 unspecified; E11.22 Type 2 diabetes mellitus with diabetic chronic kidney disease; Z20.822 Contact with and (suspected) exposure to COVID-19; Z68.39 Body mass index [BMI] 39.0-39.9, adult; Z87.891 Personal history of nicotine dependence
CPT/HCPCS: 36415; 71045; 80048; 80053; 81001; 82947; 83605; 85025; 87040; 87086; 96372; 96374; 96376; 97116; 97162; 97166; 97530; 97535; 99285-25; A9270; G0378; J0696; J1650; J1815; J7030; U0004

== ENCOUNTER 2022-02-03 17:59 | Emergency (ER) | payer MEDICARE, OTHER ==
[~2022-02-03] VITALS: Ht 157.5 cm; Wt 80.3 kg
[~2022-02-03 17:59] MED LIST changes: +AMOCLA500 PO; +VISBIOME 112.51 EACH PO
[2022-02-03 18:51] LABS: Mean Corpuscular HGB 28.6 pg (26.0-34.0); Mean Corpuscular HGB Conc 33.3 g/dL (31.5-36.5); Mean Corpuscular Volume 86 fL (80-100); Mean Platelet Volume 10.2 fL (9.1-12.4); Platelet Count 315 K/mm3 (150-400); RDW Coefficient Variation 12.6 % (11.7-14.2); RDW Standard Deviation 39.2 fL (35.1-46.3); Red Blood Cell Count 3.84 M/mm3 (3.80-5.20)
[2022-02-03 19:12] LABS: Albumin, Blood 1.9 g/dL (3.4-5.0); Albumin/Globulin Ratio 0.5 (0.8-1.8); BAND PERCENT MAN 3 % (0-8); BASOPHILS PERCENT MAN 0 % (0-2); Bilirubin, Total 0.7 mg/dL (0.1-1.0); Bun/Creatinine Ratio 17.9 (12.0-20.0); Calcium, Blood 8.1 mg/dL (8.5-10.1); Creatinine, Blood 0.95 mg/dL (0.40-1.00); EOSINOPHILS PERCENT MAN 0 % (0-6); LYMPHOCYTES ABSOLUTE MAN 0.98 K/mm3 (0.84-5.20); LYMPHOCYTES PERCENT MAN 6 % (21-46); MONOCYTES ABSOLUTE MAN 0.49 K/mm3 (0.16-1.47); MONOCYTES PERCENT MAN 3 % (4-13); NEUTROPHILS ABSOLUTE MAN 14.92 K/mm3 (1.96-9.15); Potassium, Blood 3.3 mmol/L (3.5-5.5); SEG NEUTROPHILS PERCENT MAN 88 % (41-73); TOTAL CELLS COUNTED 100; Total Protein, Blood 5.9 g/dL (6.4-8.2)
[2022-02-03 20:10] LABS: Influenza A, PCR NEGATIVE (NEGATIVE); Influenza B, PCR NEGATIVE (NEGATIVE); Resp Syncytial Virus, PCR NEGATIVE (NEGATIVE); SARS-Cov-2 (COVID-19) PCR, MMC NEGATIVE (NEGATIVE)
[2022-02-03 21:53] LABS: Source, Urine Straight Cath
[2022-02-03 21:56] LABS: Bilirubin, Urine Neg (Neg); Blood, Urine 1+ (Neg); Glucose Qualitative, Urine 4+ (Neg); Ketones, Urine 3+ (Neg); Leukocyte Esterase, Urine Neg (Neg); Nitrite, Urine Neg (Neg); Protein, Urine 1+ (Neg); Urobilinogen, Urine NORM (Normal)
[2022-02-03 22:10] LABS: Amorphous Light (0-Heavy); Appearance, Urine Clear (Clear); Bacteria Few /hpf; Color, Urine Yellow (P-Yellow); Red Blood Cells, Urine 0-2 /hpf (0-2); Squamous Epithelial Cells Few /hpf (Few); White Blood Cells, Urine Not Seen /hpf (0-5)
== END 2022-02-03 23:06 | disposition home or self-care (01) ==
LOC: ER 17:59
PROVIDERS: Emergency Medicine
DX: N39.0 Urinary tract infection, site not specified (principal); I25.5 Ischemic cardiomyopathy; R53.1 Weakness; F43.21 Adjustment disorder with depressed mood; I10 Essential (primary) hypertension; Z87.891 Personal history of nicotine dependence; Z79.4 Long term (current) use of insulin; Z79.899 Other long term (current) drug therapy; Z79.02 Long term (current) use of antithrombotics/antiplatelets; Z20.822 Contact with and (suspected) exposure to COVID-19
CPT/HCPCS: 0241U; 36415; 51798; 71045; 80053; 81001; 83605; 83880; 84484; 85025; J7030

== ENCOUNTER → 2022-05-31 | Outpatient (CLI) | payer MEDICARE, OTHER | END | disposition home or self-care (01) | LOC: LAB 15:27 → LAB SHORT 15:27 | DX: N39.0 Urinary tract infection, site not specified (principal) | CPT/HCPCS: 87077; 87086; 87186 ==

== ENCOUNTER 2022-07-02 17:03 | Emergency (ER) | payer MEDICARE, OTHER ==
[~2022-07-02] VITALS: Ht 157.5 cm; Wt 118.4 kg
[2022-07-02 17:37] LABS: Source, Urine Clean Catch
[2022-07-02 17:40] LABS: Appearance, Urine Turbid (Clear); Bilirubin, Urine Neg (Neg); Blood, Urine 4+ (Neg); Color, Urine Yellow (P-Yellow); Glucose Qualitative, Urine Neg (Neg); Ketones, Urine Neg (Neg); Leukocyte Esterase, Urine 3+ (Neg); Nitrite, Urine Neg (Neg); Protein, Urine 3+ (Neg); Urobilinogen, Urine NORM (Normal)
[2022-07-02 18:10] LABS: White Blood Cells, Urine TNTC /hpf (0-5)
[2022-07-02 18:11] LABS: Bacteria Many /hpf; Squamous Epithelial Cells Few /hpf (Few)
[2022-07-02 18:12] LABS: Red Blood Cells, Urine 0-2 /hpf (0-2)
[2022-07-02 18:16] LABS: BASOPHILS ABSOLUTE AUTO 0.07 K/mm3 (0.00-0.23); BASOPHILS PERCENT AUTO 0 % (0-2); EOSINOPHILS PERCENT AUTO 0 % (0-6); Hematocrit 43.5 % (33.0-51.0); Hemoglobin 14.2 g/dL (11.5-16.0); IMMATURE GRAN ABSOLUTE AUTO 0.09 K/mm3 (0.00-0.10); IMMATURE GRAN PERCENT AUTO 1 % (0-1); LYMPHOCYTES ABSOLUTE AUTO 1.15 K/mm3 (0.84-5.20); LYMPHOCYTES PERCENT AUTO 7 % (21-46); MONOCYTES ABSOLUTE AUTO 1.18 K/mm3 (0.16-1.47); MONOCYTES PERCENT AUTO 7 % (4-13); Mean Corpuscular HGB 28.3 pg (26.0-34.0); Mean Corpuscular HGB Conc 32.6 g/dL (31.5-36.5); Mean Corpuscular Volume 87 fL (80-100); NEUTROPHILS ABSOLUTE AUTO 14.76 K/mm3 (1.96-9.15); NEUTROPHILS PERCENT AUTO 86 % (41-73); Platelet Count 247 K/mm3 (150-400); RDW Standard Deviation 40.7 fL (35.1-46.3); Red Blood Cell Count 5.01 M/mm3 (3.80-5.20); White Blood Cell Count 17.25 K/mm3 (4.00-11.30)
[2022-07-02 18:17] LABS: Albumin, Blood 3.3 g/dL (3.4-5.0); Albumin/Globulin Ratio 0.7 (0.8-1.8); Bun/Creatinine Ratio 37.6 (12.0-20.0); Calcium, Blood 9.6 mg/dL (8.5-10.1); Creatinine, Blood 1.09 mg/dL (0.40-1.00); Globulin, Blood 4.8 g/dL (2.2-4.0); Potassium, Blood 3.8 mmol/L (3.5-5.5); Total Protein, Blood 8.1 g/dL (6.4-8.2)
[2022-07-02] MEDS ORDERED: CEFU250T47 PO (21:35)
[2022-07-02] MEDS ORDERED: ONDA4ODT MM (21:35)
== END 2022-07-02 21:52 | disposition home or self-care (01) ==
LOC: ER 17:03
PROVIDERS: Physician Assistant
DX: N39.0 Urinary tract infection, site not specified (principal); E87.1 Hypo-osmolality and hyponatremia; E86.0 Dehydration; I10 Essential (primary) hypertension; Z87.891 Personal history of nicotine dependence; Z79.899 Other long term (current) drug therapy
CPT/HCPCS: 36415; 80053; 81001; 83605; 85025; 87077; 87086; 87186; 96365; 96375; 99283-25; J0696; J2405; J7030

== ENCOUNTER → 2023-01-28 | Outpatient (CLI) | payer MEDICARE, OTHER ==
[~2023-01-28] MED LIST changes: +CEFU250T47 PO; +ONDA4ODT MM
== END | disposition home or self-care (01) ==
LOC: LAB 16:30 → LAB SHORT 16:30
DX: N39.0 Urinary tract infection, site not specified (principal)
CPT/HCPCS: 87077; 87086; 87186

== ENCOUNTER → 2024-04-19 | Outpatient (CLI) | payer MEDICARE, OTHER | END | disposition home or self-care (01) | LOC: LAB SHORT 17:29 | DX: R39.9 Unspecified symptoms and signs involving the genitourinary system (principal) | CPT/HCPCS: 87077; 87086; 87186 ==

== ENCOUNTER 2024-11-20 12:14 | Emergency (ER) | payer MEDICARE, OTHER ==
[~2024-11-20] VITALS: Ht 157.5 cm; Wt 82.5 kg
[2024-11-20] MEDS ORDERED: Percocet 5-3251 EACH PO ×2 (13:18→13:21)
[2024-11-20] MEDS ORDERED: DOC250 PO (13:21)
[2024-11-20 14:00] VITALS: BP 165/66
== END 2024-11-20 14:41 | disposition home or self-care (01) ==
LOC: ER 12:14
DX: S42.342A Displaced spiral fracture of shaft of humerus, left arm, initial encounter for closed fracture (principal); I10 Essential (primary) hypertension; E11.9 Type 2 diabetes mellitus without complications; Z87.891 Personal history of nicotine dependence; Z79.899 Other long term (current) drug therapy; Z79.2 Long term (current) use of antibiotics; Z79.84 Long term (current) use of oral hypoglycemic drugs; Z79.4 Long term (current) use of insulin; W18.30XA Fall on same level, unspecified, initial encounter
CPT/HCPCS: 73060

== ENCOUNTER 2025-08-07 17:29 | Emergency (ER) | payer MEDICARE, OTHER ==
[~2025-08-07] VITALS: Ht 157.5 cm; Wt 81.7 kg
[~2025-08-07 17:29] MED LIST changes: +DOC250 PO; +Percocet 5-3251 EACH PO
[2025-08-07 18:06] LABS: BASOPHILS ABSOLUTE AUTO 0.09 K/mm3 (0.00-0.23); BASOPHILS PERCENT AUTO 1 % (0-2); EOSINOPHILS ABSOLUTE AUTO 0.09 K/mm3 (0.00-0.68); EOSINOPHILS PERCENT AUTO 1 % (0-6); Hematocrit 38.8 % (33.0-51.0); Hemoglobin 12.4 g/dL (11.5-16.0); IMMATURE GRAN ABSOLUTE AUTO 0.03 K/mm3 (0.00-0.10); IMMATURE GRAN PERCENT AUTO 0 % (0-1); LYMPHOCYTES ABSOLUTE AUTO 2.13 K/mm3 (0.84-5.20); LYMPHOCYTES PERCENT AUTO 19 % (21-46); MONOCYTES ABSOLUTE AUTO 0.66 K/mm3 (0.16-1.47); MONOCYTES PERCENT AUTO 6 % (4-13); Mean Corpuscular HGB Conc 32.0 g/dL (31.5-36.5); Mean Corpuscular Volume 94 fL (80-100); NEUTROPHILS ABSOLUTE AUTO 8.02 K/mm3 (1.96-9.15); NEUTROPHILS PERCENT AUTO 73 % (41-73); NRBC ABSOLUTE 0.00 K/mm3 (0.00-0.02); NRBC Auto 0.0 /100 WBC (0.0-0.2); Platelet Count 186 K/mm3 (150-400); RDW Coefficient Variation 12.8 % (11.7-14.2); RDW Standard Deviation 43.7 fL (35.1-46.3)
[2025-08-07 19:00] LABS: Calcium, Ionized (POC) 1.02 mmol/L (1.10-1.46); Chloride (POC) 113 mmol/L (98-108); Creatinine (POC) 1.8 mg/dL (0.6-1.0); Glucose (ISTAT POC) 180 mg/dL (70-99); Hematocrit (POC) 36.0 % (36.0-46.0); Hemoglobin (POC) 12.2 g/dL (12.0-16.0); Potassium (POC) 6.1 mmol/L (3.5-5.5); Sodium (POC) 138 mmol/L (135-148); Total CO2 (POC) 18 mmol/L (21-32)
[2025-08-07 19:34] LABS: Alanine Aminotransfer (ALT/SGP 39.0 U/L (12-78); Albumin, Blood 4.0 g/dL (3.4-5.0); Albumin/Globulin Ratio 1.1 (0.8-1.8); Anion Gap 10.0 mmol/L (3-11); Aspartate Aminotrans (AST/SGOT 18.0 U/L (12-37); Bilirubin, Total 0.9 mg/dL (0.1-1.0); Blood Urea Nitrogen 80.0 mg/dL (8-24); CO2, Blood 24.0 mmol/L (21-32); Calcium, Blood 9.4 mg/dL (8.5-10.1); Chloride, Blood 109.0 mmol/L (98-108); Creatinine, Blood 1.55 mg/dL (0.40-1.00); Globulin, Blood 3.7 g/dL (2.2-4.0); Glucose, Blood 188.0 mg/dL (70-99); Potassium, Blood 5.0 mmol/L (3.5-5.5); Sodium, Blood 138.0 mmol/L (136-145); Total Protein, Blood 7.7 g/dL (6.4-8.2)
[2025-08-07 21:30] VITALS: BP 152/87
== END 2025-08-07 21:53 | disposition short-term general hospital (02) ==
LOC: ER 17:29
PROVIDERS: Emergency Medicine
DX: I44.2 Atrioventricular block, complete (principal); R00.1 Bradycardia, unspecified; I10 Essential (primary) hypertension; E11.9 Type 2 diabetes mellitus without complications; I42.0 Dilated cardiomyopathy; Z87.891 Personal history of nicotine dependence; Z79.84 Long term (current) use of oral hypoglycemic drugs; Z79.4 Long term (current) use of insulin; Z79.02 Long term (current) use of antithrombotics/antiplatelets; Z79.899 Other long term (current) drug therapy
CPT/HCPCS: 71045; 80047; 80053; 84484; 85014; 85025; 93005; 93010; 99285-25; A6590; J0461

== ENCOUNTER → 2025-08-23 | Outpatient (CLI) | payer MEDICARE, OTHER ==
[2025-08-23 19:30] LABS: Hematocrit 36.6 % (33.0-51.0); Hemoglobin 11.4 g/dL (11.5-16.0); Mean Corpuscular HGB Conc 31.1 g/dL (31.5-36.5); Mean Corpuscular Volume 90 fL (80-100); NRBC ABSOLUTE 0.00 K/mm3 (0.00-0.02); NRBC Auto 0.0 /100 WBC (0.0-0.2); Platelet Count 407 K/mm3 (150-400); RDW Coefficient Variation 11.9 % (11.7-14.2); RDW Standard Deviation 39.3 fL (35.1-46.3)
[2025-08-24 09:19] LABS: Alanine Aminotransfer (ALT/SGP 34.0 U/L (12-78); Albumin, Blood 3.4 g/dL (3.4-5.0); Albumin/Globulin Ratio 0.8 (0.8-1.8); Anion Gap 11.0 mmol/L (3-11); Aspartate Aminotrans (AST/SGOT 23.0 U/L (12-37); Bilirubin, Total 0.5 mg/dL (0.1-1.0); Blood Urea Nitrogen 25.0 mg/dL (8-24); CO2, Blood 25.0 mmol/L (21-32); Calcium, Blood 9.4 mg/dL (8.5-10.1); Chloride, Blood 104.0 mmol/L (98-108); Creatinine, Blood 1.03 mg/dL (0.40-1.00); Ferritin, Serum 745.0 ng/mL (8-252); Globulin, Blood 4.2 g/dL (2.2-4.0); Glucose, Blood 151.0 mg/dL (70-99); Potassium, Blood 4.9 mmol/L (3.5-5.5); Sodium, Blood 135.0 mmol/L (136-145); Total Iron Binding Capacity 253.0 ug/dL (250-450); Total Protein, Blood 7.6 g/dL (6.4-8.2)
== END | disposition home or self-care (01) ==
LOC: LAB SHORT 16:59 → LAB 16:59
DX: I11.0 Hypertensive heart disease with heart failure (principal); I50.32 Chronic diastolic (congestive) heart failure; R00.1 Bradycardia, unspecified
CPT/HCPCS: 80053; 82728; 83540; 83550; 85027